=== PATIENT | female | born 1975 | race African-American/Black ===

== ENCOUNTER 2023-10-03 09:11 | Emergency (ER) | payer BC ==
[2023-10-03] MEDS ORDERED: Lidocaine/Transparent Dressing 1 EACH KIT ONE (09:41)
[2023-10-03] MEDS ORDERED: Ketorolac Tromethamine 30 MG (1 mL) VIAL ONE (10:20)
== END 2023-10-03 10:24 | disposition home or self-care (01) ==
LOC: CSHERS 09:11
DX: J01.90 Acute sinusitis, unspecified (principal); B96.89 Other specified bacterial agents as the cause of diseases classified elsewhere; Z55.6 Problems related to health literacy
CPT/HCPCS: 96372; 99283; J1885